=== PATIENT | male | born 1940 | race Caucasian/White ===

== ENCOUNTER → 2016-11-01 | Outpatient (CLI) | payer OTHER ==
[~2016-11-01] MED LIST: ADRENOID CAPSU1 EACH PO; ALBUTEROL17 GM INH; ANTIVERT PO; ARICEPT PO; ASPIRIN EC81 M1 PO; ASPIRIN PO; ASPIRIN81 M2 PO; ATORVASTATIN CA40 MG PO; CELEXA10 M1 PO; CLARITIN10 M2 PO; CLOPIDOGREL BIS75 MG PO; CLOPIDOGREL75 MG PO; DESYREL100 MG PO; DIFICID200 MG PO; FLAGYL PO; FLEXERIL10 MG PO; FLOMAX0.4 M1 PO; HYDROCODON-ACE1 EAC7 PO; HYDROCODONE-APA1 T61 PO; IRON325 ( 65 ) PO; KEPPRA500 MG PO; LEVOTHYROXINE112 MCG PO; LEVOXYL112 MC1 PO; LEXAPRO PO; LIPITOR40 MG PO; LISINOPRIL PO; LISINOPRIL20 MG PO; LOMOTIL TABLET1 TAB PO; LOMOTIL WHITE2.5 M1 PO; LOPRESSOR PO; LORTAB 5/500 TA1 TA2 PO; METOPROLOL SUCC25 MG PO; METRONIDAZOLE PO; NABUMETONE PO; NAMENDA10 MG PO; NAPROSYN500 MG PO; NAPROXEN375 M1 PO; NITROGLYCERIN0.4 MG SL; NITROGLYGERIN0.4 MG SL; OMEPRAZOLE40 MG PO; PANTOPRAZOLE SO40 MG PO; PATIENT'S PHARMACY; PROBIOTIC250 MG PO; PROMETHAZINE W118 M1 PO; PROTONIX PO; REQUIP0.25 MG PO; REQUIP1 MG PO; ROPINIROLE HCL1 MG PO; SIMVASTATIN40 MG PO; SYNTHROID PO; TAMSULOSIN HCL0.4 MG PO; TIROSINT100 MCG PO; TIZANIDINE HCL4 M1 PO; UROXATRAL10 MG PO; VANCOCIN HCL PO; VANCOCIN HCL250 MG PO; VANCOMYCIN PO; VICODIN 5/500 T1 TAB PO; VITAMIN D1000 UNI1 PO; VITAMIN D250000 UNIT PO; VITAMIN D350000 UNIT PO; VITAMIN D50000 UNIT PO; ZOCOR PO; ZOFRAN PO
--- NOTE | ~2016-11-01 | CT70 ---
[facility] A Service of [facility] RADIOLOGY TEXT RESULTS PATIENT: LUIS CASSIDY LOCATION: [facility] : 44 UNIT #: [id number] AGE: [address]: Austin Jamison MD SEX: M ORDER DR: [id number] [facility] [address] [place], [place] [address] [id number] O MR#: [id number] [facility] #: [id number] NAME: LUIS CASSIDY : 1940 SEX: M STUDY DATE/TIME: 11/01/2016 16:02 UNIT: [facility] ROOM: STUDY DESCRIPTION: CT Head WWo Contrast Attending Physician: Austin Jamison M.D. Referring Physician: Austin Jamison M.D. Ordering Physician: Austin Jamison M.D. Primary Care Physician: No Primary Care Physician MEDICAL IMAGING REPORT This report is preliminary unless electronic signature is present EXAM Head CT with and without contrast, 11/01/2016. PROCEDURE Axial head CT, with and without contrast. This CT exam was performed with one or more of the following radiation dose reduction techniques: automatic exposure control, adjustment of mA and/or kV according to patient size, and iterative reconstruction. COMPARISON STUDIES Prior head CT, dated 08/20/2016. HISTORY Dizziness and confusion since 2015. FINDINGS There is no intracranial hemorrhage or mass. 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 There is no mass, evidence of hemorrhage, hydrocephalus, or extraaxial fluid collection. Postcontrast images show no mass or abnormal enhancement, and the skull base and calvaria are remarkable only for changes of previous left mastoidectomy. IMPRESSION Small vessel ischemic type changes and nonspecific white matter change, also likely related to small vessel disease; no interval change since 08/20/2016. No acute abnormality. Dictated by... Conner Jamison M.D. [facility] A Service of [facility] RADIOLOGY TEXT RESULTS PATIENT: LUIS CASSIDY LOCATION: [facility] : 44 UNIT #: [id number] AGE: [address]: Austin Jamison MD SEX: M ORDER DR: THIS IS AN ELECTRONICALLY VERIFIED REPORT Conner Jamison M.D. at 11/03/2016 11:48 AM Cory TD: 11/02/2016 12:09 JOB #: [id number] MEDICAL IMAGING REPORT COPY
[2016-11-01 15:40] LABS: POC - CREATININE 0.97 mg/dL (0.64-1.27); POC - GFR >60.0 mL/min (>60)
== END | disposition home or self-care (01) ==
LOC: CCAT 14:51
PROVIDERS: Internal Medicine
DX: R42 Dizziness and giddiness (principal)
CPT/HCPCS: 70470; 82565; Q9967